=== PATIENT | male | born 1945 | race Caucasian/White ===

== ENCOUNTER 2024-07-12 20:20 | Outpatient (REF) | payer BC, SELFPAY ==
[2024-07-12 21:02] LABS: Appearance Urine Cloudy (Clear); Bilirubin Urine Negative (Negative); Blood Urine 2+ (Negative); Color Urine Yellow (Yellow); Glucose Urine Negative (Negative); Ketones Urine Negative (Negative); Leukocyte Esterase Urine Trace (Negative); Nitrite Urine Negative (Negative); Protein Urine Negative (Negative); Specific Gravity Urine 1.015 (1.000-1.030)
[2024-07-12 21:29] LABS: Bacteria Urine Many; RBC Urine 0-2 (0-2)
== END 2024-07-12 20:21 | disposition home or self-care (01) ==
LOC: NPINS 20:20
PROVIDERS: PCP Family Medicine; Visit Provider Nurse Practitioner Gerontology
DX: R30.0 Dysuria (principal)
CPT/HCPCS: 81001; 87086